=== PATIENT | female | born 1935 | race African-American/Black ===

== ENCOUNTER 2017-12-01 23:14 | Emergency (ER) | payer OTHER ==
[~2017-12-01] VITALS: Ht 162.6 cm; Wt 83.9 kg
--- NOTE | 2017-12-01 23:25 | NUR ---
ASSUMED CARE OF PT AT THIS TIME. PER EMS, ON ARRIVAL, PT HAD BLOOD GLUCOSE 56. PT WAS GIVEN GLUCOSE PLASTE W/OUT IMPROVEMENT. ON ARRIVAL TO ER, BLOOD GLUCOSE IS 54. PT IS A&OX4 AND ANSWERS ALL QUESTIONS APPROPRIATELY. DENIES N/V/D; SKIN IS PINK/WARM/DRY; AAOX4 WITH EVEN AND STEADY GAIT; LUNGS CLEAR BL; HR EVEN AND REGULAR; PT DENIES ANY FEVER, CP, SOB, OR COUGH AT THIS TIME; PATIENT STATES PAIN OF 0/10; VSS; PATIENT POSITIONED FOR COMFORT; HOB ELEVATED; BEDRAILS UP X2; BED DOWN. ER MD MADE AWARE OF PT STATUS. WILL CONTINUE TO MONITOR.
[2017-12-01] MEDS ORDERED: DEXTROSE 50% 50 ML SYR IVP ONE ×2 (23:30→23:55)
[2017-12-01 23:32] VITALS: BP 207/85
[2017-12-02] MEDS ORDERED: ONDANSETRON 4 MG/2 ML VIAL IVP ONE
[2017-12-02] MEDS ORDERED: DEXT 5% / NACL 0.9% 500 ML IV ONE
--- NOTE | 2017-12-02 | NUR ---
RECEIVED REPORT FROM LATOYA VENTURA. TRANSFER OF CARE AT THIS TIME.
[2017-12-02 00:25] LABS: BASOPHILS # (AUTO) 0.1 K/uL (0.00-0.22); BASOPHILS % (AUTO) 0.4 % (0.0-2.0); EOSINOPHILS # (AUTO) 0.1 K/uL (0-0.4); EOSINOPHILS % (AUTO) 0.5 % (0.0-4.0); HEMATOCRIT 39.4 % (36-48); HEMOGLOBIN 12.9 g/dL (12.0-16.0); LYMPHOCYTES # (AUTO) 1.5 K/uL (2.5-16.5); LYMPHOCYTES % (AUTO) 10.6 % (20.5-51.1); MEAN CORPUSCULAR HEMOGLOBIN 28 pg (27-31); MEAN CORPUSCULAR HGB CONC 33 g/dL (33-37); MEAN CORPUSCULAR VOLUME 86.5 fL (80-94); MONOCYTES # (AUTO) 0.9 K/uL (0.8-1.0); MONOCYTES % (AUTO) 6.4 % (1.7-9.3); NEUTROPHILS # (AUTO) 11.6 K/uL (1.8-7.7); NEUTROPHILS % (AUTO) 82.1 % (42.2-75.2); PLATELET COUNT (AUTO) 211 K/uL (140-450); RED BLOOD CELL COUNT(AUTO) 4.56 MIL/uL (4.20-5.40); WHITE BLOOD COUNT (AUTO) 14.2 K/uL (4.8-10.8)
[2017-12-02 00:25] LABS: APPEARANCE,URINE CLEAR (CLEAR); BILIRUBIN,URINE NEGATIVE (NEGATIVE); BLOOD, URINE NEGATIVE (NEGATIVE); COLOR,URINE YELLOW (YELLOW); LEUKOCYTE ESTERASE ,URINE NEGATIVE (NEGATIVE); NITRITE, URINE NEGATIVE (NEGATIVE); UGLUCOSE 2+ (NEGATIVE)
[2017-12-02 00:46] LABS: ALBUMIN 4.3 g/dL (3.4-5.0); ANION GAP 13.9 (8-16); ASPARTATE AMINOTRANSFERASE 15 U/L (15-37); CARBON DIOXIDE 27.1 mmol/L (21-32); CHLORIDE 100 mmol/L (98-107); CREATININE 1.4 mg/dL (0.6-1.3); GLUCOSE 260 mg/dL (74-106); LIPASE 322 U/L (73-393); SODIUM SERUM 138 mmol/L (136-145); TOTAL BILIRUBIN 0.3 mg/dL (0.0-1.0); UREA NITROGEN, BLOOD 27 mg/dL (7-18)
[2017-12-02 00:48] LABS: RBC,URINE 0-5 (RARE) /HPF (0-5); WBC,URINE 0-5 (RARE) /HPF (0-5)
[2017-12-02] MEDS ORDERED: POTASSIUM CHLORIDE 10 MEQ TABER PO ONE (01:00)
--- NOTE | 2017-12-02 01:00 | NUR ---
PATIENT RESTING AT THIS TIME. NO SIGNS OF DISTRESS.
--- NOTE | 2017-12-02 02:00 | NUR ---
PATIENT RESTING AT THIS TIME. SON AT BEDSIDE.
[2017-12-02 02:37] VITALS: BP 179/65
--- NOTE | 2017-12-02 02:37 | NUR ---
Patient discharged with v/s stable. Written and verbal after care instructions given and explained. Patient verbalized understanding. Wheel Chair Assisted with to car. All questions addressed prior to discharge. Advised to follow up with PMD.
== END 2017-12-02 02:37 | disposition home or self-care (01) ==
LOC: MED 23:14
DX: E11.649 Type 2 diabetes mellitus with hypoglycemia without coma (principal); I10 Essential (primary) hypertension
CPT/HCPCS: 36415; 80053; 81001; 82948; 83690; 85025; 96361; 96374; 96375; 99284; J2405

== ENCOUNTER 2021-07-02 18:03 | Inpatient (IN) | payer OTHER, SELFPAY ==
[~2021-07-02] VITALS: Ht 160 cm; Wt 83.9 kg
[2021-07-02 18:05] VITALS: BP 143/70
--- NOTE | 2021-07-02 19:50 | NUR ---
86 Y/O FEMALE BIBA FOR HIGH BLOOD SUGAR. PATIENT PRESENTS TO ED WITH BLOOD GLUCOSE OF 485 AND CONFUSION. PT STATES SHE DOESN'T FEEL WELLL. DENIES N/V/D; SKIN IS PINK/WARM/DRY; AAOX4, GCS:14, WITH WEAK, EVEN, AND STEADY GAIT; LUNGS CLEAR BL; HR EVEN AND REGULAR; PT DENIES ANY FEVER, CP, SOB, OR COUGH AT THIS TIME; PATIENT STATES NO PAIN AT THIS TIME; PATIENT POSITIONED FOR COMFORT; HOB ELEVATED; BEDRAILS UP X2; BED DOWN. ER MD MADE AWARE OF PT STATUS. PER EMS FAMILY TOLD THEM PT IS NON COMPLIANT WITH HER HOME MEDS. HX: CRISTIANA LARSEN
[2021-07-02 20:46] LABS: BASOPHILS # (AUTO) 0.1 K/uL (0.00-0.22); BASOPHILS % (AUTO) 0.4 % (0.0-2.0); HEMATOCRIT 38.3 % (36-48); HEMOGLOBIN 12.4 g/dL (12.0-16.0); LYMPHOCYTES # (AUTO) 1.6 K/uL (2.5-16.5); LYMPHOCYTES % (AUTO) 10.6 % (20.5-51.1); MEAN CORPUSCULAR HEMOGLOBIN 28 pg (27-31); MEAN CORPUSCULAR HGB CONC 33 g/dL (33-37); MEAN CORPUSCULAR VOLUME 87.1 fL (80-94); MONOCYTES # (AUTO) 0.9 K/uL (0.8-1.0); MONOCYTES % (AUTO) 5.9 % (1.7-9.3); NEUTROPHILS # (AUTO) 12.7 K/uL (1.8-7.7); NEUTROPHILS % (AUTO) 83.1 % (42.2-75.2); PLATELET COUNT (AUTO) 207 K/uL (140-450); RED BLOOD CELL COUNT(AUTO) 4.39 MIL/uL (4.20-5.40); RED CELL DISTRIBUTION WIDTH 14.5 % (11.6-13.7); WHITE BLOOD COUNT (AUTO) 15.3 K/uL (4.8-10.8)
[2021-07-02 21:16] LABS: ANION GAP 27.2 (8-16); CARBON DIOXIDE 15.3 mmol/L (21-32); CHLORIDE 101 mmol/L (98-107); CREATININE 1.9 mg/dL (0.6-1.3); POTASSIUM 4.5 mmol/L (3.5-5.1); SODIUM SERUM 139 mmol/L (136-145); UREA NITROGEN, BLOOD 41 mg/dL (7-18)
[2021-07-02 21:18] LABS: GLUCOSE 524 mg/dL (74-106)
[2021-07-02] MEDS ORDERED: ASPIRIN 325 MG TAB PO ONE (21:30)
--- NOTE | 2021-07-02 21:30 | NUR ---
ULISES ZHAO AND WALKED TO THE LAB
--- NOTE | 2021-07-02 21:32 | NUR ---
XRAY AT BEDSIDE
[2021-07-02] MEDS ORDERED: NACL 0.9% 2,000 ML IV ONE (21:40)
--- NOTE | 2021-07-02 21:52 | NUR ---
RT AT BEDSIDE OBTAINING ABG
--- NOTE | 2021-07-02 22:01 | NUR ---
LABS AT BEDSIDE
[2021-07-02] MEDS ORDERED: INSULIN REGULAR, HUMAN 100 UNIT/ML VIAL IVP ONE (22:25)
[2021-07-03] MEDS ORDERED: INSULIN REGULAR, HUMAN 100 UNIT in NACL 0.9% 100 ML IV ONE ×2 (00:10)
[2021-07-03] MEDS ORDERED: NACL 0.9% 1,000 ML IV ONE (00:10)
[2021-07-03 00:21] LABS: APPEARANCE,URINE CLOUDY (CLEAR); BILIRUBIN,URINE 1+ (NEGATIVE); BLOOD, URINE 1+ (NEGATIVE); COLOR,URINE YELLOW (YELLOW); LEUKOCYTE ESTERASE ,URINE 1+ (NEGATIVE); NITRITE, URINE NEGATIVE (NEGATIVE); PH,URINE 5.5 (5.0-9.0); UGLUCOSE 3+ (NEGATIVE)
[2021-07-03 00:24] LABS: WBC,URINE 20-60 /HPF (0-5)
--- NOTE | 2021-07-03 00:56 | NUR ---
2ND IV ACCESS OBTAINED IN L HAND (20G).
[2021-07-03] MEDS ORDERED: NACL 0.9% 1,000 ML IV SCH (01:10)
[2021-07-03] MEDS ORDERED: SODIUM BICARBONATE 8.4% PFS 50 MEQ/50 ML SYR IVP SCH (04:00)
[2021-07-03] MEDS ORDERED: DEXT 5% / NACL 0.9% 1,000 ML IV SCH (04:00)
[2021-07-03 04:18] LABS: BASOPHILS # (AUTO) 0.1 K/uL (0.00-0.22); BASOPHILS % (AUTO) 0.5 % (0.0-2.0); EOSINOPHILS % (AUTO) 0.1 % (0.0-4.0); HEMATOCRIT 28.1 % (36-48); HEMOGLOBIN 8.9 g/dL (12.0-16.0); LYMPHOCYTES # (AUTO) 1.5 K/uL (2.5-16.5); LYMPHOCYTES % (AUTO) 14.4 % (20.5-51.1); MEAN CORPUSCULAR HEMOGLOBIN 29 pg (27-31); MEAN CORPUSCULAR HGB CONC 32 g/dL (33-37); MEAN CORPUSCULAR VOLUME 91.2 fL (80-94); MONOCYTES # (AUTO) 0.5 K/uL (0.8-1.0); MONOCYTES % (AUTO) 4.9 % (1.7-9.3); NEUTROPHILS # (AUTO) 8.5 K/uL (1.8-7.7); NEUTROPHILS % (AUTO) 80.1 % (42.2-75.2); PLATELET COUNT (AUTO) 145 K/uL (140-450); RED BLOOD CELL COUNT(AUTO) 3.08 MIL/uL (4.20-5.40); RED CELL DISTRIBUTION WIDTH 14.8 % (11.6-13.7); WHITE BLOOD COUNT (AUTO) 10.6 K/uL (4.8-10.8)
[2021-07-03] MEDS ORDERED: cefTRIAXone 1,000 MG VIAL ONE (04:22)
[2021-07-03] MEDS ORDERED: ENOXAPARIN 80 MG/0.8 ML SYR SUBQ SCH (04:30)
[2021-07-03 04:47] LABS: ANION GAP 18.8 (8-16); CARBON DIOXIDE 15.6 mmol/L (21-32); CHLORIDE 117 mmol/L (98-107); CREATININE 1.8 mg/dL (0.6-1.3); SODIUM SERUM 149 mmol/L (136-145); UREA NITROGEN, BLOOD 35 mg/dL (7-18)
[2021-07-03 04:51] LABS: POTASSIUM 2.4 mmol/L (3.5-5.1)
[2021-07-03 04:53] LABS: GLUCOSE 969 mg/dL (74-106)
--- NOTE | 2021-07-03 05:03 | NUR ---
DAUGHTER ALEM CALLED AND SHE WAS UPDATED TO PT'S CONDITION.
--- NOTE | 2021-07-03 05:30 | NUR ---
# 16 FR Zelaya catheter with 10 ml utilizing sterile technique. Immediate return of 400 ml CLEAR YELLOW urine noted. Bedside drainage bag placed below level of bladder. Urine sample collected and sent to lab. Pt tolerated procedure WELL.
[2021-07-03] MEDS ORDERED: KCL 20 MEQ/WATER INJ PREMIX 200 ML IV SCH (05:35)
[2021-07-03] MEDS ORDERED: INSULIN REGULAR, HUMAN 100 UNIT in NACL 0.9% 100 ML IV SCH ×2 (05:55)
--- NOTE | 2021-07-03 06:00 | NUR ---
LAB GLUCOSE INCONSISTENT WITH ER GLUCOMETER, BLOOD REDRAWN FOR LABS TO RECHECK.
[2021-07-03 06:33] LABS: ANION GAP 15.9 (8-16); CARBON DIOXIDE 24.8 mmol/L (21-32); CHLORIDE 116 mmol/L (98-107); CREATININE 1.9 mg/dL (0.6-1.3); GLUCOSE 115 mg/dL (74-106); POTASSIUM 3.7 mmol/L (3.5-5.1); SODIUM SERUM 153 mmol/L (136-145); UREA NITROGEN, BLOOD 40 mg/dL (7-18)
[2021-07-03] MEDS ORDERED: DEXTROSE 50% 50 ML SYR IVP ONE (06:52)
--- NOTE | 2021-07-03 06:53 | NUR ---
sw Dr. Elena regarding pt blood glucose still 70 at this time despite D5ns running. TORB of d50 amp.
[2021-07-03] MEDS ORDERED: DEXTROSE 50% 50 ML SYR IVP SCH (06:55)
--- NOTE | 2021-07-03 07:20 | NUR ---
TRANSFER OF CARE REPORT GIVEN TO JENNIFER VENTURA
--- NOTE | 2021-07-03 07:30 | NUR ---
RECEIVED PT IN [facility] ALERT X3 WITH CONFUSION. HERE FOR DKA. INSULIN DRIP INFUSING PER ORDER AT 0.05MG/HR AND D5NS AT 200ML/HR. PT TOLERATING WELL. F/C DRAINING TO GRACITY. NSR ON MONITOR. NO ACUTE DISTRESS NOTED. SAFETY MAINTAINED
[2021-07-03] MEDS ORDERED: ENOXAPARIN 40 MG/0.4 ML SYR SUBQ SCH (09:00)
--- NOTE | 2021-07-03 09:18 | NUR ---
PATIENT HAS BEEN SCREENED AND CATEGORIZED HIGH NUTRITION RISK. PATIENT WILL BE SEEN WITHIN 1-2 DAYS OF ADMISSION. 07/03/21-07/04/21 REVIEWED BY KRISTIE AGUAYO RD
[2021-07-03] MEDS ORDERED: HEPARIN PER PHARMACY MC PRN (09:30)
[2021-07-03] MEDS ORDERED: HYDROcodone/APAP 5/325 MG 1 TAB TAB PO PRN (09:30)
[2021-07-03] MEDS ORDERED: hePARIN / DEXT 5% PREMIX 250 ML IV SCH ×2 (09:30→14:00)
[2021-07-03] MEDS ORDERED: MAG SULF 2000 MG/WATER PREMIX 50 ML IV PRN (09:30)
[2021-07-03] MEDS: DEXT 5% / NACL 0.45% 1,000 ML IV SCH ×3 (09:30→16:22)
[2021-07-03] MEDS ORDERED: LORazepam 2 MG/ML VIAL IM/IVP PRN (09:30)
[2021-07-03] MEDS ORDERED: ACETAMINOPHEN 325 MG TAB PO PRN (09:30)
[2021-07-03] MEDS ORDERED: ONDANSETRON 4 MG/2 ML VIAL IM/IVP PRN (09:30)
[2021-07-03] MEDS ORDERED: ZOLPIDEM 5 MG TAB PO PRN (09:30)
[2021-07-03] MEDS ORDERED: POTASSIUM CHLORIDE 10 MEQ TABER PO PRN (09:30)
[2021-07-03] MEDS ORDERED: DOCUSATE SODIUM 100 MG GELCAP PO PRN (09:30)
[2021-07-03] MEDS ORDERED: MORPHINE SULFATE 2 MG/ML SYR IVP PRN (09:30)
--- NOTE | 2021-07-03 09:30 | NUR ---
PT RESTING IN [place] NO CHANGES NOTED. SAFETY MAINTAINED.
[2021-07-03 09:32] LABS: ANION GAP 14.2 (8-16); CARBON DIOXIDE 26.7 mmol/L (21-32); CHLORIDE 116 mmol/L (98-107); CREATININE 1.7 mg/dL (0.6-1.3); GLUCOSE 109 mg/dL (74-106); POTASSIUM 3.9 mmol/L (3.5-5.1); SODIUM SERUM 153 mmol/L (136-145); UREA NITROGEN, BLOOD 40 mg/dL (7-18)
[2021-07-03 10:38] LABS: BASOPHILS # (AUTO) 0.1 K/uL (0.00-0.22); BASOPHILS % (AUTO) 0.6 % (0.0-2.0); EOSINOPHILS % (AUTO) 0.2 % (0.0-4.0); LYMPHOCYTES % (AUTO) 15.6 % (20.5-51.1); MEAN CORPUSCULAR HEMOGLOBIN 29 pg (27-31); MEAN CORPUSCULAR HGB CONC 33 g/dL (33-37); MONOCYTES # (AUTO) 0.7 K/uL (0.8-1.0); MONOCYTES % (AUTO) 5.2 % (1.7-9.3); NEUTROPHILS # (AUTO) 10.2 K/uL (1.8-7.7); NEUTROPHILS % (AUTO) 78.4 % (42.2-75.2); PLATELET COUNT (AUTO) 192 K/uL (140-450); RED BLOOD CELL COUNT(AUTO) 3.84 MIL/uL (4.20-5.40); RED CELL DISTRIBUTION WIDTH 14.2 % (11.6-13.7)
--- NOTE | 2021-07-03 11:30 | NUR ---
PT IV INFILTRATED NEW IV INSERTED TO RIGHT AC #[id number]. FLUIDS INFUSING AT 250ML/HR PER ORDER WITH INSULIN NAD. SAFETY MAINTAINED.
--- NOTE | 2021-07-03 12:48 | NUR ---
07/03/21 RD INITIAL ASSESSMENT COMPLETED PLEASE REFER TO NUTRITION ASSESSMENT UNDER CARE ACTIVITY FOR ESTIMATED NUTRITIONAL NEEDS. 1. CONTINUE NPO MEDICALLY APPROPRIATE 2. WHEN MEDICALLY APPROPRIATE, CONSIDER SWALLOW EVAL 3. RD TO FOLLOW-UP 2-3 DAYS, HIGH RISK REVIEWED BY KRISTIE AGUAYO RD
[2021-07-03 13:25] LABS: PROTHROMBIN TIME 10.4 secs (10.8-13.4)
[2021-07-03 13:45] LABS: CARBON DIOXIDE 24.3 mmol/L (21-32); CHLORIDE 116 mmol/L (98-107); CREATININE 1.6 mg/dL (0.6-1.3); GLUCOSE 73 mg/dL (74-106); POTASSIUM 3.3 mmol/L (3.5-5.1); SODIUM SERUM 153 mmol/L (136-145); UREA NITROGEN, BLOOD 37 mg/dL (7-18)
--- NOTE | 2021-07-03 15:00 | NUR ---
iv fluids infusing with insulin no changes noted. safety maintained
--- NOTE | 2021-07-03 18:01 | NUR ---
second IV came out from pt moving up in bed, new iv inserted via us right ac #[id number].
--- NOTE | 2021-07-03 19:25 | NUR ---
RECIEVED REPORT FROM JENNIFER VENTURA
--- NOTE | 2021-07-03 19:25 | NUR ---
LABS AT BEDSIDE
--- NOTE | 2021-07-03 19:56 | NUR ---
PT MOVES IN BED AND PULLED OUT HER RIGHT ARM IV. D5/0.45NS HELD UNTIL ER MD IS ABLE TO GET US GUIDED ACCESS.
[2021-07-03 21:31] LABS: ANION GAP 10.5 (8-16); CARBON DIOXIDE 25.5 mmol/L (21-32); CHLORIDE 115 mmol/L (98-107); CREATININE 1.4 mg/dL (0.6-1.3); GLUCOSE 204 mg/dL (74-106); SODIUM SERUM 147 mmol/L (136-145); UREA NITROGEN, BLOOD 30 mg/dL (7-18)
--- NOTE | 2021-07-03 22:17 | NUR ---
PT ATTEMPTED TO USE THE COMODE BUT WAS UNSUCCESSFUL STATING SHE HAS THE URGE BUT IS UNABLE TO GO
[2021-07-03 23:12] LABS: CHOL/HDL RATIO 2.8 (1-4.5); PHOSPHORUS 1.5 mg/dL (2.5-4.9); THYROID STIMULATING HORMONE 0.11 uIU/mL (0.34-3.74)
[2021-07-04 00:02] LABS: ANION GAP 11.4 (8-16); CARBON DIOXIDE 24.4 mmol/L (21-32); CHLORIDE 117 mmol/L (98-107); CREATININE 1.5 mg/dL (0.6-1.3); GLUCOSE 225 mg/dL (74-106); POTASSIUM 3.8 mmol/L (3.5-5.1); SODIUM SERUM 149 mmol/L (136-145); UREA NITROGEN, BLOOD 33 mg/dL (7-18)
[2021-07-04] MEDS: DEXT 5% / NACL 0.45% 1,000 ML IV SCH ×6 (00:33→17:07)
[2021-07-04] MEDS ORDERED: cefTRIAXone 1,000 MG VIAL ONE (04:04)
[2021-07-04] MEDS ORDERED: DEXTROSE 50% 50 ML SYR IVP ONE ×2 (05:43→06:50)
--- NOTE | 2021-07-04 07:30 | NUR ---
RECEIVED PT IN [place] AOX4. DENIES PAIN OR DISCOMFORT. NSR ON MONITOR. IV INFUSING HEPARIN PER ORDER. TOLERATING WELL NAD. SAFETY MAINTAINED.
--- NOTE | 2021-07-04 08:15 | NUR ---
IV PULLED OUT, NEW IV INSERTED TO RIGHT FA #[id number].
[2021-07-04] MEDS ORDERED: METOPROLOL 25 MG TAB PO SCH (09:00)
[2021-07-04] MEDS: ASPIRIN 325 MG TABEC PO SCH (09:00)
[2021-07-04] MEDS: ATORVASTATIN 20 MG TAB PO SCH (09:00)
[2021-07-04] MEDS ORDERED: INSULIN LANTUS 100 UNITS/ML 10 ML VIAL SUBQ SCH (10:15)
--- NOTE | 2021-07-04 12:30 | NUR ---
IV PULLED OUT. ATTEMPTING TO PLACE ANOTHER IV
[2021-07-04 15:05] LABS: CHLORIDE 111 mmol/L (98-107); POTASSIUM 3.4 mmol/L (3.5-5.1); SODIUM SERUM 146 mmol/L (136-145)
[2021-07-04 15:12] LABS: ANION GAP 14.4 (8-16); CREATININE 1.2 mg/dL (0.6-1.3); GLUCOSE 295 mg/dL (74-106); UREA NITROGEN, BLOOD 21 mg/dL (7-18)
--- NOTE | 2021-07-04 16:00 | NUR ---
NEW IV INSERTED TO LEFT FOREARM #[id number]
[2021-07-04 18:29] LABS: BASOPHILS # (AUTO) 0.1 K/uL (0.00-0.22); EOSINOPHILS # (AUTO) 0.2 K/uL (0-0.4); EOSINOPHILS % (AUTO) 1.4 % (0.0-4.0); HEMOGLOBIN 11.1 g/dL (12.0-16.0); LYMPHOCYTES % (AUTO) 17.2 % (20.5-51.1); MEAN CORPUSCULAR HEMOGLOBIN 29 pg (27-31); MEAN CORPUSCULAR HGB CONC 33 g/dL (33-37); MEAN CORPUSCULAR VOLUME 87.1 fL (80-94); MONOCYTES # (AUTO) 0.8 K/uL (0.8-1.0); MONOCYTES % (AUTO) 7.2 % (1.7-9.3); NEUTROPHILS # (AUTO) 8.5 K/uL (1.8-7.7); NEUTROPHILS % (AUTO) 73.2 % (42.2-75.2); PLATELET COUNT (AUTO) 162 K/uL (140-450); RED BLOOD CELL COUNT(AUTO) 3.91 MIL/uL (4.20-5.40); RED CELL DISTRIBUTION WIDTH 14.9 % (11.6-13.7); WHITE BLOOD COUNT (AUTO) 11.7 K/uL (4.8-10.8)
[2021-07-04 18:55] LABS: ANION GAP 15.4 (8-16); CARBON DIOXIDE 23.7 mmol/L (21-32); CHLORIDE 107 mmol/L (98-107); CREATININE 1.3 mg/dL (0.6-1.3); POTASSIUM 4.1 mmol/L (3.5-5.1); SODIUM SERUM 142 mmol/L (136-145); UREA NITROGEN, BLOOD 24 mg/dL (7-18)
--- NOTE | 2021-07-04 18:57 | NUR ---
NO CHANGES NOTED. PT EATING DINNER IN [facility]
[2021-07-04 19:11] LABS: GLUCOSE 435 mg/dL (74-106)
[2021-07-04 21:31] LABS: ANION GAP 12.6 (8-16); CARBON DIOXIDE 26.5 mmol/L (21-32); CHLORIDE 103 mmol/L (98-107); CREATININE 1.4 mg/dL (0.6-1.3); POTASSIUM 4.1 mmol/L (3.5-5.1); SODIUM SERUM 138 mmol/L (136-145); UREA NITROGEN, BLOOD 26 mg/dL (7-18)
[2021-07-04 21:34] LABS: GLUCOSE 478 mg/dL (74-106)
[2021-07-04] MEDS: METOPROLOL 25 MG TAB PO SCH (22:33)
--- NOTE | 2021-07-05 00:06 | NUR ---
SPOKE WITH DR READ CONCERNING PT HYPERGLYCEMIA. PER MD, MORNING LANTUS RAISED TO 10 UNITS AND GIVEN AN ORDER FOR REGULAR INSULIN SLIDING SCALE.
[2021-07-05] MEDS: INSULIN LISPRO SLIDING SCALE 100 UNITS/ML VIAL SUBQ PRN ×3 (01:54→18:53)
[2021-07-05] MEDS ORDERED: cefTRIAXone 1,000 MG VIAL ONE (04:24)
--- NOTE | 2021-07-05 07:23 | NUR ---
GAVE REPORT TO SARA VENTURA
--- NOTE | 2021-07-05 07:23 | NUR ---
Report and continuation of care received from AUDREY James
--- NOTE | 2021-07-05 07:56 | NUR ---
Patient presents with both eyes open in position of comfort. panel monitor in place. Patient with slight confusion stating she "put a cord into my vagina." Patient reoriented to purpose of Zelaya in place. Bed locked in lowest position, side rails x 2.
--- NOTE | 2021-07-05 08:12 | NUR ---
AccuChek 230. Insulin sliding scale to be given
[2021-07-05] MEDS ORDERED: ASPIRIN 81 MG TAB.CHEW ONE (08:15)
[2021-07-05] MEDS: INSULIN LANTUS 100 UNITS/ML 10 ML VIAL SUBQ SCH (08:35)
[2021-07-05] MEDS: ATORVASTATIN 20 MG TAB PO SCH (08:42)
[2021-07-05] MEDS: METOPROLOL 25 MG TAB PO SCH (08:42)
[2021-07-05] MEDS: ASPIRIN 325 MG TABEC PO SCH (08:42)
[2021-07-05] MEDS: DEXT 5% / NACL 0.45% 1,000 ML IV SCH ×5 (09:30→21:30)
[2021-07-05] MEDS: BLOOD GLUCOSE MONITORING 1 DEV DEV FS SCH ×2 (12:26→17:30)
[2021-07-05] MEDS ORDERED: DOCU-299 PO (16:39)
[2021-07-05] MEDS ORDERED: ASPI-1206 PO (16:39)
[2021-07-05] MEDS ORDERED: METO25TA PO (16:39)
[2021-07-05] MEDS ORDERED: ATOR20TA40 PO (16:39)
[2021-07-05] MEDS ORDERED: LANTUS SUBQ (16:39)
--- NOTE | 2021-07-05 19:32 | NUR ---
Report and transfer of care endorsed to AUDREY Proctor
[2021-07-05 19:46] LABS: BASOPHILS # (AUTO) 0.1 K/uL (0.00-0.22); BASOPHILS % (AUTO) 0.4 % (0.0-2.0); EOSINOPHILS # (AUTO) 0.1 K/uL (0-0.4); EOSINOPHILS % (AUTO) 0.7 % (0.0-4.0); HEMATOCRIT 40.2 % (36-48); HEMOGLOBIN 13.3 g/dL (12.0-16.0); LYMPHOCYTES # (AUTO) 1.9 K/uL (2.5-16.5); LYMPHOCYTES % (AUTO) 13.1 % (20.5-51.1); MEAN CORPUSCULAR HEMOGLOBIN 29 pg (27-31); MEAN CORPUSCULAR HGB CONC 33 g/dL (33-37); MEAN CORPUSCULAR VOLUME 86.3 fL (80-94); MONOCYTES # (AUTO) 0.7 K/uL (0.8-1.0); MONOCYTES % (AUTO) 5.2 % (1.7-9.3); NEUTROPHILS # (AUTO) 11.5 K/uL (1.8-7.7); NEUTROPHILS % (AUTO) 80.6 % (42.2-75.2); PLATELET COUNT (AUTO) 198 K/uL (140-450); RED BLOOD CELL COUNT(AUTO) 4.66 MIL/uL (4.20-5.40); RED CELL DISTRIBUTION WIDTH 14.1 % (11.6-13.7); WHITE BLOOD COUNT (AUTO) 14.3 K/uL (4.8-10.8)
[2021-07-05 20:13] LABS: PHOSPHORUS 3.3 mg/dL (2.5-4.9)
[2021-07-05 20:42] LABS: ANION GAP 16.4 (8-16); CARBON DIOXIDE 25.4 mmol/L (21-32); CHLORIDE 102 mmol/L (98-107); CREATININE 1.3 mg/dL (0.6-1.3); GLUCOSE 245 mg/dL (74-106); POTASSIUM 3.8 mmol/L (3.5-5.1); SODIUM SERUM 140 mmol/L (136-145); UREA NITROGEN, BLOOD 28 mg/dL (7-18)
[2021-07-06] MEDS: DEXT 5% / NACL 0.45% 1,000 ML IV SCH ×3 (01:30→09:30)
[2021-07-06 02:01] LABS: ANION GAP 14.4 (8-16); CARBON DIOXIDE 23.2 mmol/L (21-32); CHLORIDE 101 mmol/L (98-107); CREATININE 1.4 mg/dL (0.6-1.3); GLUCOSE 346 mg/dL (74-106); POTASSIUM 3.6 mmol/L (3.5-5.1); SODIUM SERUM 135 mmol/L (136-145); UREA NITROGEN, BLOOD 36 mg/dL (7-18)
[2021-07-06] MEDS: BLOOD GLUCOSE MONITORING 1 DEV DEV FS SCH ×2 (03:23→08:25)
[2021-07-06] MEDS: INSULIN LISPRO SLIDING SCALE 100 UNITS/ML VIAL SUBQ PRN ×2 (03:42→08:29)
[2021-07-06] MEDS: METOPROLOL 25 MG TAB PO SCH ×2 (03:51→08:22)
--- NOTE | 2021-07-06 07:18 | NUR ---
CALLED AND SPOKE WITH PATIENT SON ABDELRAHMAN. WAS INFORMED WILL CALL BACK WITH AN ETA TO WHEN HIS MOTHER CAN BE PICKED UP
--- NOTE | 2021-07-06 07:57 | NUR ---
REPORT RECEIVED FROM MARLYN KRISHNA FOR TRANSFER OF CARE
--- NOTE | 2021-07-06 07:59 | NUR ---
Pt report given to JERICA. Transfer of care at this time.
--- NOTE | 2021-07-06 08:02 | NUR ---
CALLED AND SPOKE WITH PATIENT SON ABDELRAHMAN. PT SON WILL BE HERE AROUND 1400 TO MIS SPECIALIST PATIENT FOR DISCHARGE
[2021-07-06] MEDS: ATORVASTATIN 20 MG TAB PO SCH (08:22)
--- NOTE | 2021-07-06 08:26 | NUR ---
PHYSICAL THERAPY BEDSIDE WITH PATIENT AT THIS TIME
[2021-07-06 08:59] VITALS: BP 115/61
--- NOTE | 2021-07-06 09:02 | NUR ---
Patient appears to be resting comfortably in bed. Vital Signs within normal limits. Respirations even and unlabored.
[2021-07-06] MEDS: ASPIRIN 325 MG TABEC PO SCH (09:53)
[2021-07-06] MEDS: INSULIN LANTUS 100 UNITS/ML 10 ML VIAL SUBQ SCH (09:53)
--- NOTE | 2021-07-06 11:23 | NUR ---
Patient discharged with v/s stable. Written and verbal after care instructions given and explained. Patient verbalized understanding. Wheel Chair Assisted with to car. All questions addressed prior to discharge. Advised to follow up with PMD. PATIENT DISCHARGED UNDER DR. READ.
--- NOTE | 2021-07-06 16:21 | NUR ---
DC PLANNING: RECEIVED A CALL FROM [facility] WILL CONTACT PATIENT AND START THE CARE. CM TO FOLLOW
== END 2021-07-06 11:20 | disposition home health service (06) | DRG 637 ==
LOC: MED 18:03 → MMU 07-03 01:17 → MTU 07-04 14:02
DX: E11.10 Type 2 diabetes mellitus with ketoacidosis without coma (principal); N17.0 Acute kidney failure with tubular necrosis; N39.0 Urinary tract infection, site not specified; E87.0 Hyperosmolality and hypernatremia; Z60.2 Problems related to living alone; E66.9 Obesity, unspecified; E87.6 Hypokalemia; E83.51 Hypocalcemia; E86.0 Dehydration; I11.9 Hypertensive heart disease without heart failure; I25.10 Atherosclerotic heart disease of native coronary artery without angina pectoris; T38.3X6A Underdosing of insulin and oral hypoglycemic [antidiabetic] drugs, initial encounter; E83.39 Other disorders of phosphorus metabolism; Z20.822 Contact with and (suspected) exposure to COVID-19; Y92.89 Other specified places as the place of occurrence of the external cause; Z68.32 Body mass index [BMI] 32.0-32.9, adult
CPT/HCPCS: 36415; 36600; 71045; 80048; 81001; 82009; 82150; 82803; 83036; 83605; 83690; 83735; 83880; 84100; 84134; 84443; 84484; 85025; 85610; 85730; 87040; 87086; 93005; 96374; 96376; 97163-GP; 99291; J0696; J1644; J1650; J1815; J2270; J3480; J7060; Q0092

== ENCOUNTER 2022-08-30 20:08 | Emergency (ER) | payer OTHER ==
[~2022-08-30] VITALS: Ht 160 cm; Wt 72.6 kg
[~2022-08-30 20:08] MED LIST: ASPI-1206 PO; ATOR20TA40 PO; DOCU-299 PO; LANTUS SUBQ; METO25TA PO
[2022-08-30 20:10] VITALS: BP 170/55
--- NOTE | 2022-08-30 20:10 | NUR ---
JOEY ALS TO BED #10
--- NOTE | 2022-08-30 20:10 | NUR ---
RECEIVED IN BED 10, JOEY FROM HOME WITH C/O LOW BLOOD SUGAR. PT WITH H/O DM, WAS FEELING WEAK AND CALLED [phone]. UPON MEDIC ARRIVAL, PT WAS AWAKE AND ALERT WITH BG 60, ORAL GLUCOSE WAS GIVEN WITH NEXT GLUCOSE 58. 125 ML OF D10 WAS GIVEN WITH BG FOLLOWING + 86. PT IS NOW AWAKE AND ALERT, DENIES PAIN OR DISCOMFORT. SKIN IS WARM AND DRY. ATTACHED TO CM = SR WITHOUT ECTOPY
--- NOTE | 2022-08-30 20:25 | NUR ---
DR DAN AT BEDSIDE FOR EXAM
[2022-08-30 21:13] LABS: BASOPHILS % (AUTO) 0.4 % (0.0-2.0); EOSINOPHILS % (AUTO) 0.2 % (0.0-4.0); HEMATOCRIT 34.9 % (36-48); HEMOGLOBIN 11.3 g/dL (12.0-16.0); LYMPHOCYTES # (AUTO) 1.1 K/uL (2.5-16.5); LYMPHOCYTES % (AUTO) 9.1 % (20.5-51.1); MEAN CORPUSCULAR HEMOGLOBIN 28 pg (27-31); MEAN CORPUSCULAR HGB CONC 32 g/dL (33-37); MEAN CORPUSCULAR VOLUME 87.7 fL (80-94); MONOCYTES # (AUTO) 0.6 K/uL (0.8-1.0); MONOCYTES % (AUTO) 5.5 % (1.7-9.3); NEUTROPHILS # (AUTO) 10.1 K/uL (1.8-7.7); NEUTROPHILS % (AUTO) 84.8 % (42.2-75.2); PLATELET COUNT (AUTO) 211 K/uL (140-450); RED BLOOD CELL COUNT(AUTO) 3.98 MIL/uL (4.20-5.40); RED CELL DISTRIBUTION WIDTH 14.6 % (11.6-13.7); WHITE BLOOD COUNT (AUTO) 11.9 K/uL (4.8-10.8)
--- NOTE | 2022-08-30 21:26 | NUR ---
AMBULATED TO BR
[2022-08-30 21:28] LABS: ALBUMIN 4.2 g/dL (3.4-5.0); ANION GAP 11.6 (8-16); ASPARTATE AMINOTRANSFERASE 13 U/L (15-37); CARBON DIOXIDE 26.3 mmol/L (21-32); CHLORIDE 105 mmol/L (98-107); CREATININE 1.5 mg/dL (0.6-1.3); GLUCOSE 169 mg/dL (74-106); POTASSIUM 3.9 mmol/L (3.5-5.1); SODIUM SERUM 139 mmol/L (136-145); TOTAL BILIRUBIN 0.3 mg/dL (0.0-1.0); UREA NITROGEN, BLOOD 41 mg/dL (7-18)
[2022-08-31 00:20] VITALS: BP 170/55
--- NOTE | 2022-08-31 00:20 | NUR ---
Patient discharged with v/s stable. Written and verbal after care instructions given and explained. Patient verbalized understanding. Ambulatory with steady gait. All questions addressed prior to discharge. Advised to follow up with PMD.
== END 2022-08-31 00:20 | disposition home or self-care (01) ==
LOC: MED 20:08
DX: E11.649 Type 2 diabetes mellitus with hypoglycemia without coma (principal); I10 Essential (primary) hypertension; E78.5 Hyperlipidemia, unspecified; R00.1 Bradycardia, unspecified; Z79.899 Other long term (current) drug therapy; Z79.4 Long term (current) use of insulin; Z79.82 Long term (current) use of aspirin
CPT/HCPCS: 36415; 80053; 85025; 93005; 99284